=== PATIENT | male | born 1985 | race Hispanic/Latino ===

== ENCOUNTER 2021-10-11 12:59 | Inpatient (IN) | payer MEDICAID ==
[2021-10-11] VITALS (21 sets, daily range): BP systolic 111–144; BP diastolic 58–88
[~2021-10-11] VITALS: Ht 180.3 cm; Wt 125.1 kg
[2021-10-11 13:17] LABS: BASOPHILS % (AUTO) 0.8 % (0.0-5.0); EOSINOPHILS % (AUTO) 0.6 % (0.0-8.0); HEMATOCRIT 50.6 % (42-54); MEAN CORPUSCULAR HEMOGLOBIN 31.3 pg (27.0-33.0); MEAN CORPUSCULAR HGB CONC 35.2 g/dL (32.0-36.0); MEAN CORPUSCULAR VOLUME 89.1 fL (79-99); MONOCYTES % (AUTO) 5.8 % (3.0-13.0); NEUTROPHILS % (AUTO) 71.4 % (40.0-77.0); PLATELET COUNT (AUTO) 327 K/uL (130-400); RED BLOOD CELL COUNT(AUTO) 5.68 MIL/uL (4.50-6.20); RED CELL DISTRIBUTION WIDTH 13.5 % (11.0-15.5); WHITE BLOOD COUNT (AUTO) 15.4 K/uL (4.8-10.8)
[2021-10-11] MEDS ORDERED: NITROGLYCERIN 1GM OINT 1 INCH/1GM TD ONE ×2 (13:21→13:30)
[2021-10-11] MEDS ORDERED: METOPROLOL TARTRATE 1 MG/ML 5ML VIAL IV ONE ×2 (13:21→13:30)
[2021-10-11 13:37] LABS: POTASSIUM 3.5 mmol/L (3.5-5.1)
[2021-10-11 13:47] LABS: ALBUMIN 4.1 g/dL (3.5-5.0); BILIRUBIN,TOTAL 0.5 mg/dL (0.2-1.0); TOTAL PROTEIN, SERUM 8.7 g/dL (6.0-8.3)
[2021-10-11] MEDS ORDERED: NITROGLYCERIN 0.4 MG SL TAB SL PRN (14:20)
[2021-10-11] MEDS ORDERED: HEPARIN 5,000 UNIT VIAL ONE (14:29)
[2021-10-11] MEDS ORDERED: PRASUGREL HCL 10 MG TABLET PO SCH (14:30)
[2021-10-11] MEDS ORDERED: HEPARIN 5,000 UNIT VIAL IV SCH (14:30)
[2021-10-11] MEDS ORDERED: HEPARIN 25,000 UNITS/250ML D5W 250 ML IV ONE (14:30)
[2021-10-11] MEDS ORDERED: HEPARIN 10,000 UNIT/10ML (1,000 UNIT/ML) VIAL ONE (14:51)
[2021-10-11] MEDS ORDERED: BIVALIRUDIN 250 MG/VIAL IV ONE (14:51)
[2021-10-11] MEDS ORDERED: NITROGLYCERIN 50MG VIAL ONE (14:51)
[2021-10-11] MEDS ORDERED: IOHEXOL-350 50ML VIAL IV ONE (14:52)
[2021-10-11] MEDS ORDERED: IOHEXOL 350 MG/ML 100ML INFUS..BTL IV ONE ×3 (14:52→15:40)
[2021-10-11] MEDS ORDERED: MIDAZOLAM HCL 1 MG/ML 2ML VIAL ONE (14:53)
[2021-10-11] MEDS ORDERED: FENTANYL CITRATE PF 50 MCG/1 ML 2ML VIAL ONE ×2 (14:53→16:19)
[2021-10-11] MEDS ORDERED: LIDOCAINE HCL 400MG/20ML VIAL ONE (14:53)
[2021-10-11] MEDS ORDERED: CILOSTAZOL 100 MG TAB PO SCH (15:30)
[2021-10-11] MEDS ORDERED: EPTIFIBATIDE 2 MG/ML 10 ML VIAL IVP ONE ×2 (15:33→15:34)
[2021-10-11 16:06] LABS: INR 1.02 (0.85-1.15); PROTHROMBIN TIME 11.1 SEC (9.6-11.6)
[2021-10-11] MEDS ORDERED: EPINEPHRINE PF 1MG AMP ONE (16:10)
[2021-10-11] MEDS ORDERED: ATROPINE 1MG SYG IVP ONE (16:10)
[2021-10-11] MEDS ORDERED: FUROSEMIDE 20MG VIAL ONE (16:50)
[2021-10-11] MEDS ORDERED: EPTIFIBATIDE 75MG/100ML BOTTLE 100 ML IV ONE (17:24)
[2021-10-11] MEDS ORDERED: ALBU8.5H8 IH (18:56)
[2021-10-11] MEDS ORDERED: IPRATROPIUM 0.5 MG/2.5 ML INH IH PRN (19:30)
[2021-10-11] MEDS ORDERED: PANTOPRAZOLE 40 MG TAB DR PO SCH (20:15)
[2021-10-11] MEDS: BUDESONIDE 0.5 MG/2 ML INH IH SCH (20:41)
[2021-10-11] MEDS: METOPROLOL TARTRATE 25 MG TAB PO SCH (20:47)
[2021-10-11] MEDS: EPTIFIBATIDE 75MG/100ML BOTTLE 100 ML IV SCH (20:47)
[2021-10-11] MEDS: ATORVASTATIN 40 MG TABLET PO SCH (20:48)
[2021-10-11] MEDS: CILOSTAZOL 100 MG TAB PO SCH (20:48)
[2021-10-11] MEDS: LISINOPRIL 5 MG TABLET PO SCH (20:48)
[2021-10-12] VITALS (58 sets, daily range): BP systolic 97–153; BP diastolic 33–114
[2021-10-12] MEDS: EPTIFIBATIDE 75MG/100ML BOTTLE 100 ML IV SCH (02:10)
[2021-10-12 04:09] LABS: HEMATOCRIT 46.5 % (42-54); MEAN CORPUSCULAR HGB CONC 33.8 g/dL (32.0-36.0); MEAN CORPUSCULAR VOLUME 88.7 fL (79-99); RED BLOOD CELL COUNT(AUTO) 5.24 MIL/uL (4.50-6.20); RED CELL DISTRIBUTION WIDTH 13.4 % (11.0-15.5); WHITE BLOOD COUNT (AUTO) 13.2 K/uL (4.8-10.8)
[2021-10-12 04:26] LABS: HEMOGLOBIN A1C 5.6 % (4.0-6.0)
[2021-10-12 04:32] LABS: POTASSIUM 3.3 mmol/L (3.5-5.1)
[2021-10-12] MEDS: BUDESONIDE 0.5 MG/2 ML INH IH SCH ×2 (06:53→18:37)
[2021-10-12] MEDS ORDERED: POTASSIUM CHLORIDE 20MEQ/100ML 100 ML IV PRN (07:00)
[2021-10-12] MEDS: KCL 20 MEQ ERTAB PO PRN ×3 (07:00→10:58)
[2021-10-12] MEDS ORDERED: POTASSIUM CHLORIDE 10% ELIXIR 20 MEQ/15 ML UDCUP PO PRN (07:00)
[2021-10-12] MEDS: CILOSTAZOL 100 MG TAB PO SCH ×2 (08:39→20:28)
[2021-10-12] MEDS: METOPROLOL TARTRATE 25 MG TAB PO SCH ×2 (08:40→20:29)
[2021-10-12] MEDS: PANTOPRAZOLE 40 MG TAB DR PO SCH (08:40)
[2021-10-12] MEDS: PRASUGREL HCL 10 MG TABLET PO SCH (08:40)
[2021-10-12] MEDS: ATORVASTATIN 40 MG TABLET PO SCH (20:28)
[2021-10-12] MEDS: LISINOPRIL 5 MG TABLET PO SCH (20:28)
[2021-10-13] VITALS (16 sets, daily range): BP systolic 95–154; BP diastolic 43–81
[2021-10-13] MEDS: BUDESONIDE 0.5 MG/2 ML INH IH SCH ×2 (06:20→18:16)
[2021-10-13 07:41] LABS: HEMATOCRIT 47.3 % (42-54); MEAN CORPUSCULAR HEMOGLOBIN 30.7 pg (27.0-33.0); MEAN CORPUSCULAR HGB CONC 34.2 g/dL (32.0-36.0); MEAN CORPUSCULAR VOLUME 89.6 fL (79-99); PLATELET COUNT (AUTO) 277 K/uL (130-400); RED BLOOD CELL COUNT(AUTO) 5.28 MIL/uL (4.50-6.20); RED CELL DISTRIBUTION WIDTH 13.5 % (11.0-15.5); WHITE BLOOD COUNT (AUTO) 10.7 K/uL (4.8-10.8)
[2021-10-13 07:46] LABS: CREATININE 1.1 mg/dL (0.5-1.5); MAGNESIUM 2.1 mg/dL (1.80-2.40)
[2021-10-13 07:50] LABS: INR 1.08 (0.85-1.15); PROTHROMBIN TIME 11.7 SEC (9.6-11.6)
[2021-10-13 08:43] LABS: EOSINOPHILS % (MANUAL) 3 % (1-6); LYMPHOCYTES % (MANUAL) 26 % (22-44); MONOCYTES % (MANUAL) 15 % (2-9); REACTIVE LYMPHOCYTES 2 % (0-0); SEGMENTED NEUTROPHILS % 54 % (40-70)
[2021-10-13 08:44] LABS: MAN.DIFF COMMENT-IMPRESSION MANUAL DIFFERENTIAL; PLATELET MORPHOLOGY COMMENT ADEQUATE
[2021-10-13] MEDS ORDERED: PRAS10TA9 PO (09:14)
[2021-10-13] MEDS ORDERED: RIVA2.5T PO (09:14)
[2021-10-13] MEDS ORDERED: LISI2.5T13 PO (09:14)
[2021-10-13] MEDS ORDERED: CILO100T PO (09:14)
[2021-10-13] MEDS ORDERED: ATOR40TA71 PO (09:14)
[2021-10-13] MEDS ORDERED: FURO20TA6 PO (09:14)
[2021-10-13] MEDS ORDERED: METO25TA6 PO (09:14)
[2021-10-13] MEDS: METOPROLOL TARTRATE 25 MG TAB PO SCH ×2 (09:25→21:01)
[2021-10-13] MEDS: PANTOPRAZOLE 40 MG TAB DR PO SCH (09:25)
[2021-10-13] MEDS: RIVAROXABAN 2.5 MG TABLET PO SCH ×2 (09:25→21:01)
[2021-10-13] MEDS: FUROSEMIDE 20 MG TABLET PO SCH (09:26)
[2021-10-13] MEDS: CILOSTAZOL 100 MG TAB PO SCH ×2 (09:26→21:03)
[2021-10-13] MEDS: PRASUGREL HCL 10 MG TABLET PO SCH (09:27)
[2021-10-13] MEDS: POTASSIUM CHLORIDE 10MEQ SR TAB PO SCH (09:28)
[2021-10-13] MEDS: ATORVASTATIN 40 MG TABLET PO SCH (21:01)
[2021-10-13] MEDS: LISINOPRIL 5 MG TABLET PO SCH (21:03)
[2021-10-14 00:03] VITALS: BP 89/63
[2021-10-14 01:16] LABS: AMPHET/METH SCREEN,URINE NEGATIVE (NEGATIVE); BARBITURATE SCREEN, URINE NEGATIVE (NEGATIVE); BENZODIAZEPINES SCREEN,URINE NEGATIVE (NEGATIVE); CANNABINOID SCREEN,URINE POSITIVE (NEGATIVE); COCAINE SCREEN,URINE NEGATIVE (NEGATIVE); OPIATE SCREEN,URINE NEGATIVE (NEGATIVE); PHENCYCLIDINE SCREEN,URINE NEGATIVE (NEGATIVE)
[2021-10-14 03:03] VITALS: BP 94/61
[2021-10-14 03:48] LABS: HEMATOCRIT 47.2 % (42-54); MEAN CORPUSCULAR HEMOGLOBIN 30.2 pg (27.0-33.0); MEAN CORPUSCULAR HGB CONC 33.5 g/dL (32.0-36.0); MEAN CORPUSCULAR VOLUME 90.2 fL (79-99); RED BLOOD CELL COUNT(AUTO) 5.23 MIL/uL (4.50-6.20); RED CELL DISTRIBUTION WIDTH 13.2 % (11.0-15.5); WHITE BLOOD COUNT (AUTO) 12.4 K/uL (4.8-10.8)
[2021-10-14 04:09] LABS: CREATININE 1.2 mg/dL (0.5-1.5); POTASSIUM 3.7 mmol/L (3.5-5.1)
[2021-10-14] MEDS: BUDESONIDE 0.5 MG/2 ML INH IH SCH (06:34)
[2021-10-14 08:00] VITALS: BP 96/63
[2021-10-14] MEDS ORDERED: RIVA10TA PO (08:22)
[2021-10-14] MEDS: RIVAROXABAN 2.5 MG TABLET PO SCH (09:40)
[2021-10-14] MEDS: CILOSTAZOL 100 MG TAB PO SCH (09:40)
[2021-10-14] MEDS: PANTOPRAZOLE 40 MG TAB DR PO SCH (09:40)
[2021-10-14] MEDS: POTASSIUM CHLORIDE 10MEQ SR TAB PO SCH (09:40)
[2021-10-14] MEDS: METOPROLOL TARTRATE 25 MG TAB PO SCH (09:40)
[2021-10-14] MEDS: FUROSEMIDE 20 MG TABLET PO SCH (09:40)
[2021-10-14] MEDS: PRASUGREL HCL 10 MG TABLET PO SCH (09:40)
== END 2021-10-14 10:00 | disposition home or self-care (01) | DRG 174 ==
LOC: EDH 12:59 → EDHIP 13:00 → 2CH 15:49 → 2DH 10-13 18:36
PROVIDERS: ADMIT Internal Medicine; ATTEND Internal Medicine
PROC: 027035Z Dilation of Coronary Artery, One Artery with Two Drug-eluting Intraluminal Devices, Percutaneous Approach (ICD-10-PCS; principal; 2021-10-11)
PROC: 4A023N7 Measurement of Cardiac Sampling and Pressure, Left Heart, Percutaneous Approach (ICD-10-PCS; 2021-10-11)
PROC: B2111ZZ Fluoroscopy of Multiple Coronary Arteries using Low Osmolar Contrast (ICD-10-PCS; 2021-10-11)
PROC: 02C03ZZ Extirpation of Matter from Coronary Artery, One Artery, Percutaneous Approach (ICD-10-PCS; 2021-10-11)
PROC: B41J1ZZ Fluoroscopy of Other Lower Arteries using Low Osmolar Contrast (ICD-10-PCS; 2021-10-11)
PROC: B2151ZZ Fluoroscopy of Left Heart using Low Osmolar Contrast (ICD-10-PCS; 2021-10-11)
PROC: 3E05317 Introduction of Other Thrombolytic into Peripheral Artery, Percutaneous Approach (ICD-10-PCS; 2021-10-11)
DX: I21.4 Non-ST elevation (NSTEMI) myocardial infarction (principal); I50.41 Acute combined systolic (congestive) and diastolic (congestive) heart failure; I47.2 Ventricular tachycardia; I11.0 Hypertensive heart disease with heart failure; E66.9 Obesity, unspecified; F31.9 Bipolar disorder, unspecified; J45.909 Unspecified asthma, uncomplicated; F17.210 Nicotine dependence, cigarettes, uncomplicated; I25.10 Atherosclerotic heart disease of native coronary artery without angina pectoris; Z87.11 Personal history of peptic ulcer disease; Z87.01 Personal history of pneumonia (recurrent); Z86.16 Personal history of COVID-19; Z88.6 Allergy status to analgesic agent; Z79.02 Long term (current) use of antithrombotics/antiplatelets; Z87.892 Personal history of anaphylaxis; Z68.38 Body mass index [BMI] 38.0-38.9, adult
CPT/HCPCS: 36415; 71045; 80048; 80053; 80061; 80305; 82948; 83036; 83735; 84484; 85025; 85027; 85347; 85610; 85730; 92975; 93005; 93306; 93458; 94640; 94664; 99156; 99157; 99291; C1760; C1769; C1887; C1894; C9601; C9606; G0378; J0171; J0461; J0583; J1327; J1644; J1940; J2250; J3010; J3490; Q9967

== ENCOUNTER 2022-04-21 09:41 | Emergency (ER) | payer MEDICAID ==
[~2022-04-21] VITALS: Ht 180.3 cm; Wt 127.0 kg
[~2022-04-21 09:41] MED LIST: ATOR40TA71 PO; CILO100T3 PO; FURO20TA6 PO; LISI2.5T13 PO; METO25TA6 PO; PRAS10TA9 PO; RIVA10TA PO
[2022-04-21 10:24] LABS: BASOPHILS % (AUTO) 0.9 % (0.0-5.0); HEMATOCRIT 41.5 % (42-54); LYMPHOCYTES % (AUTO) 25.8 % (21.0-51.0); MEAN CORPUSCULAR HGB CONC 34.5 g/dL (32.0-36.0); MEAN CORPUSCULAR VOLUME 89.8 fL (79-99); PLATELET COUNT (AUTO) 283 K/uL (130-400); RED BLOOD CELL COUNT(AUTO) 4.62 MIL/uL (4.50-6.20)
[2022-04-21 10:33] LABS: CREATININE 0.9 mg/dL (0.5-1.5); POTASSIUM 3.8 mmol/L (3.5-5.1)
[2022-04-21 10:38] LABS: ALBUMIN 3.6 g/dL (3.5-5.0); TOTAL PROTEIN, SERUM 7.4 g/dL (6.0-8.3)
[2022-04-21 12:51] VITALS: BP 111/50
[2022-04-21 13:57] LABS: AMPHET/METH SCREEN,URINE NEGATIVE (NEGATIVE); BARBITURATE SCREEN, URINE NEGATIVE (NEGATIVE); BENZODIAZEPINES SCREEN,URINE NEGATIVE (NEGATIVE); CANNABINOID SCREEN,URINE POSITIVE (NEGATIVE); COCAINE SCREEN,URINE NEGATIVE (NEGATIVE); OPIATE SCREEN,URINE NEGATIVE (NEGATIVE); PHENCYCLIDINE SCREEN,URINE NEGATIVE (NEGATIVE)
== END 2022-04-21 14:54 | disposition home or self-care (01) ==
LOC: EDH 09:41
DX: F12.10 Cannabis abuse, uncomplicated (principal); F41.9 Anxiety disorder, unspecified; E86.0 Dehydration; E78.00 Pure hypercholesterolemia, unspecified; I21.9 Acute myocardial infarction, unspecified; Z98.890 Other specified postprocedural states; Z88.0 Allergy status to penicillin; Z88.6 Allergy status to analgesic agent; Z88.5 Allergy status to narcotic agent
CPT/HCPCS: 36415; 70450; 71045; 80053; 80305; 84484; 85025; 93005

== ENCOUNTER 2023-02-22 10:34 | Observation (INO) | payer MEDICAID ==
[~2023-02-22] VITALS: Ht 180.3 cm; Wt 107.6 kg
[2023-02-22 11:12] LABS: BASOPHILS # (AUTO) 0.12 K/uL (0.00-0.20); BASOPHILS % (AUTO) 1.2 % (0.0-5.0); EOSINOPHILS # (AUTO) 0.66 K/uL (0.00-0.70); EOSINOPHILS % (AUTO) 6.6 % (0.0-8.0); HEMATOCRIT 46.5 % (42-54); IMMATURE GRANULOCYTE ABSOLUTE 0.02 K/uL (0-1); LYMPHOCYTES % (AUTO) 30.2 % (21.0-51.0); MEAN CORPUSCULAR VOLUME 91.4 fL (79-99); MONOCYTES # (AUTO) 0.6 K/uL (0.1-1.0); MONOCYTES % (AUTO) 5.9 % (3.0-13.0); NEUTROPHILS # (AUTO) 5.6 K/uL (1.8-7.7); NEUTROPHILS % (AUTO) 55.9 % (40.0-77.0); PLATELET COUNT (AUTO) 300 K/uL (130-400); RED BLOOD CELL COUNT(AUTO) 5.09 MIL/uL (4.50-6.20); RED CELL DISTRIBUTION WIDTH 13.4 % (11.0-15.5); WHITE BLOOD COUNT (AUTO) 10.1 K/uL (4.8-10.8)
[2023-02-22 11:25] LABS: ALBUMIN 4.2 g/dL (3.5-5.0); BILIRUBIN,TOTAL 0.4 mg/dL (0.2-1.0); CREATININE 0.9 mg/dL (0.5-1.5); POTASSIUM 3.6 mmol/L (3.5-5.1); TOTAL PROTEIN, SERUM 8.1 g/dL (6.0-8.3)
[2023-02-22 11:48] LABS: INR 0.98 (0.85-1.15); PROTHROMBIN TIME 11.4 SEC (9.6-11.6)
[2023-02-22 11:49] LABS: PARTIAL THROMBOPLASTIN TIME 30.5 SEC (26.3-35.5)
[2023-02-22 12:03] LABS: SARS-CoV-2, RNA, NAAT NEGATIVE SARS CoV-2 (NEGATIVE)
[2023-02-22 12:18] LABS: B-TYPE NATRIURETIC PEPTIDE 102 pg/mL (0-100)
[2023-02-22 12:21] LABS: ADD UA MICROSCOPIC NO; APPEARANCE,URINE CLEAR (CLEAR); BILIRUBIN,URINE NEGATIVE (NEGATIVE); COLOR,URINE COLORLESS (YELLOW); GLUCOSE, URINE (UA) NEGATIVE (NEGATIVE); KETONES,URINE NEGATIVE (NEGATIVE); LEUKOCYTE ESTERASE ,URINE NEGATIVE Leu/uL (NEGATIVE); NITRATE,URINE NEGATIVE (NEGATIVE); OCCULT BLOOD,URINE NEGATIVE (NEGATIVE); PROTEIN,URINE NEGATIVE (NEGATIVE); UROBILINOGEN,URINE 0.2 mg/dL (0.2-1.0)
[2023-02-22 12:22] LABS: AMPHET/METH SCREEN,URINE NEGATIVE (NEGATIVE); BARBITURATE SCREEN, URINE NEGATIVE (NEGATIVE); BENZODIAZEPINES SCREEN,URINE NEGATIVE (NEGATIVE); CANNABINOID SCREEN,URINE POSITIVE (NEGATIVE); COCAINE SCREEN,URINE NEGATIVE (NEGATIVE); OPIATE SCREEN,URINE NEGATIVE (NEGATIVE); PHENCYCLIDINE SCREEN,URINE NEGATIVE (NEGATIVE)
[2023-02-22] MEDS ORDERED: 0.9%NACL 1000ML 1,000 ML IV ONE ×2 (12:30→15:00)
[2023-02-22 13:02] LABS: INFLUENZA TYPE A Negative For Type A (NEGATIVE); INFLUENZA TYPE B Negative For Type B (NEGATIVE)
[2023-02-22] MEDS ORDERED: IOHEXOL 350 MG/ML 100ML INFUS..BTL IV ONE (15:38)
[2023-02-22 15:54] LABS: HEMOGLOBIN A1C 5.4 % (4.0-6.0)
[2023-02-22] MEDS ORDERED: METO-408 PO (17:49)
[2023-02-22] MEDS ORDERED: ASPI-1197 PO (17:49)
[2023-02-22] MEDS ORDERED: CLOP75TA32 PO (17:49)
[2023-02-22] MEDS ORDERED: OMEP20CA12 PO (17:49)
[2023-02-22] MEDS ORDERED: TOPIRAMATE 25 MG TABLET PO SCH (20:00)
[2023-02-22] MEDS ORDERED: METOPROLOL SUCCINATE 25 MG TAB.SR.24H PO SCH (21:30)
[2023-02-22] MEDS ORDERED: PHARMACY COMMUNICATION MISC SCH (22:00)
[2023-02-22 22:26] VITALS: O2SAT 99
[2023-02-23 00:28] VITALS: BP 132/78; PULSE 63; RESP 16
[2023-02-23 03:45] LABS: EOSINOPHILS # (AUTO) 0.62 K/uL (0.00-0.70); EOSINOPHILS % (AUTO) 6.4 % (0.0-8.0); HEMATOCRIT 39.8 % (42-54); IMMATURE GRANULOCYTE ABSOLUTE 0.02 K/uL (0-1); LYMPHOCYTES # (AUTO) 3.5 K/uL (1.0-4.8); MEAN CORPUSCULAR HEMOGLOBIN 31.3 pg (27.0-33.0); MEAN CORPUSCULAR HGB CONC 34.9 g/dL (32.0-36.0); MEAN CORPUSCULAR VOLUME 89.6 fL (79-99); MONOCYTES # (AUTO) 0.7 K/uL (0.1-1.0); MONOCYTES % (AUTO) 7.3 % (3.0-13.0); NEUTROPHILS # (AUTO) 4.8 K/uL (1.8-7.7); NEUTROPHILS % (AUTO) 49.1 % (40.0-77.0); PLATELET COUNT (AUTO) 245 K/uL (130-400); RED BLOOD CELL COUNT(AUTO) 4.44 MIL/uL (4.50-6.20); RED CELL DISTRIBUTION WIDTH 13.1 % (11.0-15.5); WHITE BLOOD COUNT (AUTO) 9.7 K/uL (4.8-10.8)
[2023-02-23 03:57] LABS: ALANINE AMINOTRANSFERASE 29 U/L (12-78); ALBUMIN 3.1 g/dL (3.5-5.0); ASPARTATE AMINOTRANSFERASE 15 U/L (10-37); BILIRUBIN,TOTAL 0.5 mg/dL (0.2-1.0); CARBON DIOXIDE 31 mmol/L (21-32); CHLORIDE 102 mmol/L (101-111); CRP QUANTITATIVE < 2.00 mg/L (0.00-9.0); GLOMERULAR FILTR. RATE CALC 98 mL/min (>90); GLUCOSE,RANDOM 91 mg/dL (70-105); LACTATE DEHYDROGENASE 121 U/L (81-234); POTASSIUM 3.3 mmol/L (3.5-5.1); SODIUM SERUM 139 mmol/L (136-145); TOTAL PROTEIN, SERUM 6.2 g/dL (6.0-8.3); UREA NITROGEN, BLOOD 8 mg/dL (7-18)
[2023-02-23 04:31] VITALS: BP 127/83; PULSE 62; RESP 16
[2023-02-23 08:44] VITALS: BP 141/91; PULSE 60; RESP 20
[2023-02-23] MEDS ORDERED: ASPIRIN 81MG CHEW TAB PO SCH (09:00)
[2023-02-23] MEDS ORDERED: PANTOPRAZOLE 40 MG TAB DR PO SCH (09:00)
[2023-02-23] MEDS ORDERED: CLOPIDOGREL 75MG TAB PO SCH (09:00)
[2023-02-23 09:30] VITALS: O2SAT 97
[2023-02-23 11:28] VITALS: BP 134/87; PULSE 58; RESP 20
[2023-02-23] MEDS ORDERED: SUMA25TA9 PO (12:29)
[2023-02-23] MEDS ORDERED: METO25TA3 PO (12:29)
[2023-02-23] MEDS ORDERED: TOPI25TA42 PO (12:29)
[2023-02-23] MEDS ORDERED: METOPROLOL SUCCINATE 25 MG TAB.SR.24H PO SCH (21:00)
[2023-02-23] MEDS ORDERED: LISINOPRIL 2.5 MG TABLET PO SCH (21:00)
== END 2023-02-23 14:51 | disposition home or self-care (01) ==
LOC: EDH 10:34 → INTOOBSV 10:35 → EDHIP 10:35 → UNDOADMIN 14:57 → EDHIP 14:57 → 2DH 22:00 → EDHIP 22:00
PROVIDERS: ADMIT Internal Medicine; ATTEND Internal Medicine
DX: R53.1 Weakness (principal); Z20.822 Contact with and (suspected) exposure to COVID-19; R25.1 Tremor, unspecified; R07.89 Other chest pain; I25.10 Atherosclerotic heart disease of native coronary artery without angina pectoris; E66.9 Obesity, unspecified; I10 Essential (primary) hypertension; G43.909 Migraine, unspecified, not intractable, without status migrainosus; E78.5 Hyperlipidemia, unspecified; F12.10 Cannabis abuse, uncomplicated; Q33.3 Agenesis of lung; F31.9 Bipolar disorder, unspecified; G95.0 Syringomyelia and syringobulbia; I25.2 Old myocardial infarction; Z79.82 Long term (current) use of aspirin; Z87.891 Personal history of nicotine dependence; Z88.0 Allergy status to penicillin; Z79.899 Other long term (current) drug therapy; Z95.5 Presence of coronary angioplasty implant and graft
CPT/HCPCS: 96360; 96361 ×3; 99285; 83036; 84443; 82550; 84484 ×3; 80053 ×2; 83880; 80305; 85025 ×2; 85610; 85730; 87040 ×2; 87804 ×2; 83605; 81003; 36415 ×2; 87635; 71045; 70450; 70496; 70498; 70551; 72141; 72148; 72146; 92522; 92610; 93005; 83615; 86140; 93306; 93356; 97161; 97039; 97116; C9803; Q9967; G0378 ×3; G8980-CI; G8983-CI